=== PATIENT | female | born 1995 | race African-American/Black ===

== ENCOUNTER 2019-06-04 03:40 | Inpatient (IN) | payer OTHER ==
[2019-06-04] MEDS ORDERED: DEXTROSE 5%-LACTATED RINGERS 500 ML IV ONE (04:00)
[2019-06-04 04:16] VITALS: BMI 24.3
[2019-06-04 04:33] LABS: BASO % 0.4 % (0-2.0); EOS % 0.6 % (0-4.5); HEMATOCRIT 33.8 % (32.4-45.2); HEMOGLOBIN 11.4 GM/dL (10.7-15.3); LYMPH % 41.5 % (8-40); MCH 27.4 pg (25.7-33.7); MCHC 33.8 g/dl (32.0-36.0); MEAN CELL VOLUME 80.9 fl (80-96); MEAN PLT VOLUME 9.9 fl (7.5-11.1); MONO % 5.2 % (3.8-10.2); NEUT % 52.3 % (42.8-82.8); PLATELET COUNT 214 K/MM3 (134-434); RBC 4.18 M/mm3 (3.60-5.2); RDW 15.6 % (11.6-15.6); WHITE BLOOD COUNT 9.4 K/mm3 (4.0-10.0)
[2019-06-04] MEDS ORDERED: OXYTOCIN 20 UNITS in 0.9% NS 20 UNIT/1,000 ML INFUS.BAG IV ONE ×2 (04:56→08:15)
[2019-06-04 05:00] LABS: BLOOD UREA NITROGEN 14.1 mg/dL (7-18); CALCIUM 8.9 mg/dL (8.5-10.1); CREATININE 0.7 mg/dL (0.55-1.3); POTASSIUM 3.9 mmol/L (3.5-5.1)
[2019-06-04] MEDS: OXYTOCIN 20 UNITS in 0.9% NS 20 UNIT/1,000 ML INFUS.BAG IV SCH ×2 (05:10→08:17)
[2019-06-04 05:13] LABS: INR 0.92 (0.83-1.09); PROTHROMBIN TIME (PATIENT) 10.8 SEC (9.7-13.0)
[2019-06-04 05:16] LABS: ACTIVATED PTT 29.5 SECONDS (25.2-36.5)
--- NOTE | 2019-06-04 05:22 | HP ---
Past Medical History - Primary Care Physician PCP:: Julio César Naqvi E - Admission Chief Complaint: term, in labor History Source: Patient, Caregiver Limitations to Obtaining History: No Limitations - Past Medical History RECEIVING WEIGHER: No: Alzheimer's, CVA, Dementia, Migraine, Multiple Sclerosis, Peripheral Neuropathy, Parkinson's, Seizure, Syncope, TIA, Vertigo, Other Cardiovascular: No: AFIB, Aneurysm, Aortic Insufficiency, Aortic Stenosis, CAD, CHF, Deep Vein Thrombosis, HTN, Hyperlipdemia, IA, Mitral Insufficiency, Mitral Stenosis, Murmur, Pulmonary Hypertension, Other Pulmonary: No: Asthma, Bronchitis, Cancer, COPD, O2 Dependent, Pneumonia, Previously Intubated, Pulmonary Embolus, Pulmonary Fibrosis, Sleep Apnea, Other Gastrointestinal: No: Ascites, Cancer, Constipation, Crohn's Disease, Diverticulitis, Diverticulosis, Esophageal Varices, Gastritis, GERD, GI Bleed, Hemorrhoids, Hiatal Hernia, Inflamatory Bowel Disease, Irritable Bowel Disease, Pancreatitis, Peptic Ulcer Disease, Ulcerative Colitis, Other Hepatobiliary: No: Cirrhosis, Cholelithiasis, Cholecystitis, Choledocholithiasis , Hepatitis A, Hepatitis B, Hepatitis C, Other Renal/: No: Renal Failure, Renal Inusuff, BPH, Cancer, Hematuria, Hemodialysis , Neurogenic Bladder, Renal Calculi, UTI, Other ...: 3 ...Para: 2 ...Term: 1 ...: 1 ...Spon : 0 ...Induced : 0 ...Multiple Gestation: 0 ... Weeks Gestation by Dates: 39.3 ...EDC by Dates: 06/08/19 Heme/Onc: No: Anemia, B12 Deficiency, Bleeding Disorder, Cancer, Current Chemotherapy, Current Radiation Therapy, Hemochromatosis, Hypercoaguable State, Myeloproliferative Synd, Sickle Cell Disease, Sickle Cell Trait, Thrombocytopenia, Other Infectious Disease: No: AIDS, C-Diff, Herpes Zoster, HIV, MRSA, STD's, Tuberculosis, VREF, Other Psych: No: Addictions, Anxiety, Bipolar, Depression, Panic, Psychosis, Schizophrenia, Other Musculoskeletal: No: Bursitis, Chronic low back pain, Hemiparesis, Hemiplegia, Osteoarthritis, Paraplegia, Other Rheumatology: No: Fibromyalgia, Gout, Lupus, Rheumatoid Arthritis, Sarcoidosis, Vasculitis, Other ENT: No: Allergic Rhinitis, Sinusitis, Other Endocrine: No: Nye's Disease, Nneka's Disease, Diabetes Insipidus, Diabetes Mellitus, Hyperparathyroidism, Hyperthyroidism, Hypothyroidism, Osteopenia, SIADH, Other Dermatology: No: Basal Cell, Cellulitis, Eczema, Melanoma, Psoriasis, Squamous Cell, Other - Past Surgical History Past Surgical History: Yes: None. No: AAA Repair, AICD, Amputation, Appendectomy, Arthrosocopy, AV Fistula/Graft, Bariatric Surgery, Breast Biopsy, Bypass, CABG, Carotid Endarterectomy, Cataract Removal, Cholecystectomy, Colectomy, Colonoscopy, Colostomy, Craniotomy, , Cystectomy, Hernia Repair, Hysterectomy, Ileal Conduit, Ileosotomy, Joint Replacement, Kidney Transplant, Laminectomy, Liver Transplant, Mastectomy, Nephrectomy, Oopherectomy , Orchiectomy, Permanent Pacemaker, Prostatectomy, Splenectomy, Stent, Thoracotomy, TURP, Tonsillectomy, Tubal Ligation, Upper Endoscopy, Valve Replacement, Vasectomy, Vein Stripping/Ligation Hx Myomectomy: No Hx Transabdominal Cerclage: No - Smoking History Smoking history: Never smoked Have you smoked in the past 12 months: No - Alcohol/Substance Use Hx Alcohol Use: No History of Substance Use: reports: None - Social History ADL: Independent History of Recent Travel: No Home Medications - Allergies Allergies/Adverse Reactions: Allergies Allergy/AdvReac Type Severity Reaction Status Date / Time blueberry Allergy Verified 06/04/19 04:14 ciprofloxacin [From Cipro] Allergy Verified 06/04/19 04:13 Family Medical History Family History: Unremarkable Review of Systems - Review of Systems Constitutional: denies: No Symptoms, Chills, Diaphoresis, Fever, Lethargy, Loss of Appetite, Malaise, Night Sweats, Unintentional Wgt. Loss, Weakness, Other Eyes: denies: No Symptoms, Blind Spots, Blurred Vision, Double Vision, Eye Pain , Floaters, Photophobia, Recent Change in Vision, Other HENT: denies: No Symptoms, Difficult Swallowing, Ear Discharge, Ear Pain, Epistaxis, Gingival Bleeding, Hearing Loss, Mouth Swelling, Nasal Congestion, Ocular Prosthesis, Throat Pain, Toothache, Ringing in Ears, Other Neck: denies: No Symptoms, Decreased ROM, Lumps, Pain on Movement, Stiffness, Swollen Glands, Tenderness, Other Cardiovascular: denies: No Symptoms, Chest Pain, Edema, Palpitations, Shortness of Breath, Other Respiratory: denies: No Symptoms, Cough, Exercise Intolerance, Hemoptysis, Orthopnea, PND, Snoring, SOB, SOB on Exertion, Wheezing, Other Gastrointestinal: denies: No Symptoms, Abdominal Pain, Bloating, Constipation, Diarrhea, Dysphagia, Indigestion, Melena, Nausea, Rectal Bleeding, Vomiting, Vomiting Blood, Other Genitourinary: denies: No Symptoms, Burning, Discharge, Dysuria, Flank Pain, Frequency, Hematuria, Incontinence, Lesions, Menses, Pain, Testicular Mass, Testicular Pain, Testicular Swelling, Urgency, Vaginal Bleeding, Other Breasts: denies: No Symptoms Reported, See HPI, Breast Implants, Discharge from Nipple, Lumps, Pain, Skin Changes, Other Musculoskeletal: denies: No Symptoms, Back Pain, Crepitus, Decreased ROM, Extremity Pain, Joint Pain, Joint Swelling, Muscle Pain, Muscle Cramps, Muscle Weakness, Other Integumentary: denies: No Symptoms, Blister, Bruising, Change in Color, Eczema, Erythema, Incision, Lesions, Lump, Pallor, Pruritis, Rash, Wound, Other Neurological: denies: No Symptoms, Change in LOC, Change in Speech, Confusion, Dizziness, Headache, Incoordination, Numbness, Parasthesia, Pre-Existing Deficit , Seizure, Syncope, Tremors, Unsteady Gait, Weakness, Other Endocrine: denies: No Symptoms, Excessive Sweating, Flushing, Increased Hunger, Increased Thirst, Intolerance to Cold, Intolerance to Heat, Unexplained Weight Gain, Unexplained Weight Loss, Other Hematology/Lymphatic: denies: No Symptoms, Easily Bruised, Excessive Bleeding, Swollen Glands, Other Psychiatric: denies: No Symptoms, Altered Sleep Pattern, Anxiety, Depression, Hallucinations, Panic, Paranoia, Suicidal, Other Physical Exam - Maternity Vital Signs: Vital Signs Temperature 97.4 F L 06/04/19 03:40 Pulse Rate 82 06/04/19 03:40 Respiratory Rate 18 06/04/19 03:40 Blood Pressure 121/81 06/04/19 03:40 O2 Sat by Pulse Oximetry (%) Constitutional: Yes: Well Nourished, No Distress, Calm Eyes: Yes: WNL, Conjunctiva Clear, EOM Intact HENT: Yes: WNL, Atraumatic, Normocephalic Neck: Yes: WNL, Supple, Trachea Midline Cardiovascular: Yes: WNL, Regular Rate and Rhythm Breast(s): Yes: WNL - Abdominal Exam/OB Fundal Height: 38 Number of Fetuses: Single Presentation: Vertex Contractions: Yes Regularity: Regular Intensity: Mod/Strong Monitor Mode: External Heart Rate Location: [id number] Category: I Accelerations: Uniform - Vaginal Exam/OB Speculum Exam: No Dilatation (cm): 8 Effacement (%): 100 Amniotic Membrane Status: Intact Presentation: Vertex/Position Station: +1 - Physical Exam Musculoskeletal: Yes: WNL Extremities: Yes: WNL Integumentary: Yes: WNL ...Motor Strength: WNL Psychiatric: Yes: WNL - Labs Lab Results: CBC, BMP 06/04/19 04:20 06/04/19 04:20 Hemorrhage Risk Assessment - Risk Factors Medium Risk Factors: No: Prior , uterine surgery,or multiple laparotomies, Multiple gestation, Greater than 4 previous births, History of previous hemorrhage, Large myomas, EFW greater than 4000g, Obesity ( BMI >40), Hematocrit < 30% & other, None High Risk Factors: No: Placenta previa, low lying, Suspected accreta/ percreta, Active bleeding on admission, Platelets less than 70,000, Known coagulopathy, None Risk Score: 2 Risk Level: High Risk Problem List - Problems (1) Active labor Code(s): [id number] - Assessment/Plan AROM Deliver
--- NOTE | 2019-06-04 05:27 | PN ---
Progress Note, Labor Vaginal Exam #1 Labor Exam Date: 06/04/19 Labor Exam Time: 05:00 Dilatation: 8 Effacement (%): 100 Amniotic Membrane Status: Bulging Presentation: Vertex/Position Station: +1 (AROM, clear.)
--- NOTE | 2019-06-04 05:28 | PN ---
Progress Note, Labor Vaginal Exam #2 Labor Exam Date: 06/04/19 Labor Exam Time: 05:05 Dilatation: 10 Station: +2 Remarks: pushing
[2019-06-04] MEDS ORDERED: BENZOCAINE 28 GM HEMORRHOIDAL OINTMENT TP PRN (05:30)
[2019-06-04] MEDS ORDERED: METHYLERGONOVINE MALEATE 0.2 MG/1 ML AMP IM PRN (05:30)
[2019-06-04] MEDS ORDERED: BENZOCAINE 20% 57 GM BOTTLE TP PRN (05:30)
[2019-06-04] MEDS ORDERED: BISACODYL 10 MG SUPP.RECT RC PRN (05:30)
[2019-06-04] MEDS ORDERED: WITCH HAZEL 50% (TUCKS) 40 PAD/JAR PAD TP PRN (05:30)
--- NOTE | 2019-06-04 05:30 | PN ---
Delivery - Delivery Type of Anesthesia: None Episiotomy/Laceration: None EBL (cc): 250 Delivery, Single - Stages of Labor Date of Delivery: 06/04/19 Time of Delivery: 05:07 Placenta: Yes: Spontaneous - Condition of Instrument Person/Programmable Logic Controller Assembler Present: No Infant Gender: Male Position: Left, OA - Thor Feeding Plan Initial Plan: Elected not to breastfeed exclusively throughout hospitalization
[2019-06-04] MEDS ORDERED: OXYTOCIN 20 UNITS in 0.9% NS 20 UNIT/1,000 ML INFUS.BAG IV SCH (06:00)
[2019-06-04] MEDS ORDERED: ACETAMINOPHEN 325 MG TABLET (FP) ONE (07:11)
[2019-06-04] MEDS: ACETAMINOPHEN 325 MG TABLET (FP) PO PRN ×3 (07:19→23:36)
[2019-06-04] MEDS ORDERED: ONDANSETRON 4 MG/2 ML VIAL IVPUSH PRN (10:22)
[2019-06-04] MEDS: IBUPROFEN 600 MG TABLET (FP) PO PRN ×2 (10:44→23:35)
[2019-06-05 08:21] LABS: BASO % 0.4 % (0-2.0); EOS % 0.8 % (0-4.5); HEMATOCRIT 34.3 % (32.4-45.2); HEMOGLOBIN 11.5 GM/dL (10.7-15.3); LYMPH % 36.3 % (8-40); MCH 27.1 pg (25.7-33.7); MCHC 33.6 g/dl (32.0-36.0); MEAN CELL VOLUME 80.6 fl (80-96); MEAN PLT VOLUME 9.5 fl (7.5-11.1); MONO % 4.8 % (3.8-10.2); NEUT % 57.7 % (42.8-82.8); PLATELET COUNT 188 K/MM3 (134-434); RBC 4.25 M/mm3 (3.60-5.2); RDW 15.9 % (11.6-15.6); WHITE BLOOD COUNT 11.8 K/mm3 (4.0-10.0)
--- NOTE | 2019-06-05 08:40 | PN ---
Progress Note (short form) - Note Progress Note: PP#1. VSS. Feels well. Recovering. Nursing. Baby circumcised. PEW excellent. Uterus contracted. Perineum intact. No CVA, extrem. T. I/P: Doing well. Instructed. Discharge. Problem List - Problems (1) Active labor Code(s): [id number] -
--- NOTE | 2019-06-05 08:42 | DS ---
Physical Exam-MANAGER APPLE Vital Signs: Vital Signs Temperature 98.5 F 06/05/19 06:00 Pulse Rate 80 06/05/19 06:00 Respiratory Rate 20 06/05/19 06:00 Blood Pressure 101/61 06/05/19 06:00 O2 Sat by Pulse Oximetry (%) 100 06/04/19 06:15 Constitutional: Yes: Well Nourished, No Distress, Calm Eyes: Yes: WNL, Conjunctiva Clear, EOM Intact HENT: Yes: WNL, Atraumatic, Normocephalic Neck: Yes: WNL, Supple, Trachea Midline Cardiovascular: Yes: WNL, Regular Rate and Rhythm Respiratory: Yes: WNL, Regular, CTA Bilaterally Gastrointestinal: Yes: WNL ...Rectal Exam: Yes: WNL Renal/: Yes: WNL Breast(s): Yes: WNL Musculoskeletal: Yes: WNL Extremities: Yes: WNL Integumentary: Yes: WNL Neurological: Yes: WNL, Alert, Oriented ...Motor Strength: WNL Psychiatric: Yes: WNL, Alert, Oriented Labs: CBC, BMP 06/05/19 07:56 06/04/19 04:20 Delivery - Delivery Vaginal Delivery: No Problems (uneventful) Type of Anesthesia: None Episiotomy/Laceration: None EBL (cc): 250 Delivery, Single - Stages of Labor Date 1st Stage Initiatied: 06/04/19 Time 1st Stage Initiated: 00:00 Date 2nd Stage Initiated: 06/04/19 Time 2nd Stage Initiated: 05:05 Date of Delivery: 06/04/19 Time of Delivery: 05:07 Time Placenta Delivered: 05:10 Placenta: Yes: Spontaneous - Condition of Dry Cleaner Hand/Electronic Commerce Specialist Present: No Infant Gender: Male Weight: 6 lb 6 oz Position: Left, OA Total Hours ROM (Hrs/Mins): 17min - 1 Minute Total Score: 9 5 Minutes Total Score: 9 - Tamiment Feeding Plan Initial Plan: Elected not to breastfeed exclusively throughout hospitalization Remarks - Remarks Remarks: Doing well. Discharge Summary Problems reviewed: Yes Reason For Visit: LABOR ADMIT Current Active Problems Active labor (Acute) Condition: Good - Instructions Diet, Activity, Other Instructions: reg. diet. Disposition: HOME
[2019-06-05] MEDS: DEXTROSE 5%-LACTATED RINGERS 1,000 ML IV SCH (20:57)
[2019-06-05] MEDS: OXYTOCIN 20 UNITS in 0.9% NS 20 UNIT/1,000 ML INFUS.BAG IV SCH (20:58)
[2019-06-05] MEDS ORDERED: SENNOSIDES/DOCUSATE COMBO (SENNA PLUS) TABLET (UD) PO PRN (22:00)
[2019-06-06 09:29] VITALS: BP 115/63; PULSE 80; TEMP 97.6
== END 2019-06-06 13:45 | disposition home or self-care (01) | DRG 560 ==
LOC: JLDR 03:40 → J3W 08:23
PROVIDERS: ADMIT Specialist; ATTEND Specialist
PROC: 10E0XZZ Delivery of Products of Conception, External Approach (ICD-10-PCS; principal; 2019-06-04)
DX: O80 Encounter for full-term uncomplicated delivery (principal); Z3A.39 39 weeks gestation of pregnancy; Z37.0 Single live birth
CPT/HCPCS: 36415; 59409; 80048; 85025; 85610; 85730; 86593; 86850; 86900; 86901

== ENCOUNTER 2023-12-09 12:20 | Inpatient (IN) | payer OTHER ==
[2023-12-09] MEDS: ELECTROLYTE-148 SOLN 1,000 ML IV SCH (13:00)
[2023-12-09 13:47] VITALS: BMI 26.6
[2023-12-09] MEDS ORDERED: OXYTOCIN 20 UNITS in 0.9% NS 20 UNIT/1,000 ML INFUS.BAG IV ONE ×2 (13:51→15:48)
[2023-12-09] MEDS: OXYTOCIN 20 UNITS in 0.9% NS 20 UNIT/1,000 ML INFUS.BAG IV SCH (14:00)
[2023-12-09] MEDS ORDERED: LIDOCAINE HCL 1% PRESERVATIVE FREE - 30ML VIAL ONE (14:05)
[2023-12-09 14:42] LABS: CORD HCO3 21.6 mmHg (20-29); CORD PCO2 33.8 mmHg (30-78); CORD pH 7.424 (7.14-7.44)
[2023-12-09 14:44] LABS: CORD HCO3 20.6 mmHg (20-29); CORD PCO2 44.6 mmHg (30-78); CORD pH 7.282 (7.14-7.44)
[2023-12-09 15:31] LABS: BASO % 0.3 % (0-2.0); EOS % 0.1 % (0-4.5); HEMATOCRIT 33.3 % (32.4-45.2); LYMPH % 17.7 % (8-40); MCH 25.8 pg (25.7-33.7); MCHC 33.1 g/dl (32.0-36.0); MEAN PLT VOLUME 8.7 fl (7.5-11.1); MONO % 3.3 % (3.8-10.2); NEUT % 78.6 % (42.8-82.8); PLATELET COUNT 150 10^3/uL (134-434); RBC 4.26 M/mm3 (3.60-5.2); RDW 15.6 % (11.6-15.6)
[2023-12-09 15:37] LABS: INR 0.95 (0.83-1.09); PROTHROMBIN TIME (PATIENT) 10.8 SEC (9.7-13.0)
[2023-12-09 15:39] LABS: ACTIVATED PTT 26.3 SECONDS (25.2-36.5)
[2023-12-09 15:46] LABS: CALCIUM 8.4 mg/dL (8.5-10.1); POTASSIUM 3.8 mmol/L (3.5-5.1)
[2023-12-09 15:47] LABS: BLOOD UREA NITROGEN 8.9 mg/dL (7-18)
[2023-12-09 15:50] LABS: CREATININE 0.6 mg/dL (0.55-1.3)
[2023-12-09] MEDS ORDERED: BENZOCAINE 28 GM HEMORRHOIDAL OINTMENT TP PRN (16:25)
[2023-12-09] MEDS ORDERED: WITCH HAZEL 50% (TUCKS) 40 PAD/JAR PAD TP PRN (16:25)
[2023-12-09] MEDS ORDERED: ACETAMINOPHEN 325 MG TABLET (FP) PO PRN (16:25)
[2023-12-09] MEDS ORDERED: BENZOCAINE 20% 57 GM BOTTLE TP PRN (16:25)
[2023-12-09] MEDS: IBUPROFEN 600 MG TABLET (FP) PO PRN (17:22)
[2023-12-10 08:09] LABS: BASO % 0.4 % (0-2.0); EOS % 0.5 % (0-4.5); HEMATOCRIT 32.7 % (32.4-45.2); HEMOGLOBIN 10.8 GM/dL (10.7-15.3); LYMPH % 26.8 % (8-40); MCH 25.7 pg (25.7-33.7); MEAN PLT VOLUME 10.3 fl (7.5-11.1); MONO % 4.2 % (3.8-10.2); NEUT % 68.1 % (42.8-82.8); PLATELET COUNT 150 10^3/uL (134-434); WHITE BLOOD COUNT 13.7 K/mm3 (4.0-10.0)
[2023-12-10 12:41] LABS: POC NITRAZINE NEG
[2023-12-10 22:07] VITALS: RESP 18
[2023-12-11] MEDS: SENNOSIDES/DOCUSATE COMBO (SENNA PLUS) TABLET (UD) PO PRN (03:35)
[2023-12-11 09:44] VITALS: BP 106/73; PULSE 93; TEMP 98.7
== END 2023-12-11 12:15 | disposition home or self-care (01) | DRG 560 ==
LOC: JLDR 12:20 → J3W 16:13
PROVIDERS: ADMIT Specialist; ATTEND Specialist
PROC: 10E0XZZ Delivery of Products of Conception, External Approach (ICD-10-PCS; principal; 2023-12-09)
PROC: 0HQ9XZZ Repair Perineum Skin, External Approach (ICD-10-PCS; 2023-12-09)
DX: O70.0 First degree perineal laceration during delivery (principal); Z3A.39 39 weeks gestation of pregnancy; Z37.0 Single live birth
CPT/HCPCS: 36415; 36600; 59409; 80048; 82803; 83986-QW; 85025; 85610; 85730; 86780; 86850; 86900; 86901